=== PATIENT | male | born 1970 | race Caucasian/White ===

== ENCOUNTER 2018-10-05 23:28 | Emergency (ER) | payer MEDICAID ==
[~2018-10-05] VITALS: Ht 172.7 cm; Wt 81.8 kg
[2018-10-06] MEDS ORDERED: LIDOCAINE 5% TRANSDERMAL PATCH TD ONE (03:00)
[2018-10-06] MEDS ORDERED: GABAPENTIN 100 MG CAPSULE PO ONE (03:00)
[2018-10-06 03:32] VITALS: BP 135/80
== END 2018-10-06 03:56 | disposition home or self-care (01) ==
LOC: EMS 23:28
DX: G89.29 Other chronic pain (principal); M54.9 Dorsalgia, unspecified; G62.9 Polyneuropathy, unspecified; F15.90 Other stimulant use, unspecified, uncomplicated; F17.290 Nicotine dependence, other tobacco product, uncomplicated